=== PATIENT | male | born 1955 | race Caucasian/White ===

== ENCOUNTER 2016-09-02 07:45 | Day surgery (SDC) | payer OTHER ==
--- NOTE | 2016-02-21 17:12 | PCM.HPSURG ---
Subjective Date of Service: Feb 18, 2016 Referring Provider: Admitting Physician: Primary Care Physician: Nicci Vance MD Attending Physician: Senthil Valle MD Chief Complaint SEE BELOW History of Present Illness Patient: Tyson Garcia Date of : 1955 Visit Type: Pre Op Visit Date: 02/18/2016 09:00 AM This 60 year old male presents for Preop C3-5 ACDF and Allograft & Plating. History of Present Illness: 1. Preop C3-5 ACDF, Allograft & Plating Tyson Garcia is a 60 year old male referred by Primary Care Provider (PCP) Nicci Vance M.D. who presents today's date 02/18/2016 for a preoperative type of appointment concerning the decision for surgery involving C3-4, & C4-5 anterior cervical discectomy and fusion, with allograft bone 2, & anterior cervical plating from C3-5 secondary to a diagnosis of cervical spondylosis with myelopathy with related complaints of severe, intractable, and debilitating referred neck spasm with pain radiating to the bilateral shoulders & upper extremities involving numbness, paresthesias, dysesthesias, weakness, & loss of hand coordination. This patient was initially seen by Dr. Senthil Valle M.D. on 10/18/2015 documenting a 5 year history of cervical myelopathy, exacerbated by work activities. Over the past 5 years he has had constant neck pain, with gradual progression, episodes of pain between the shoulder blades, episodes of numbness and paresthesias in the forearms and hands, jitteriness in the hands, dropping things, and loss of hand coordination. A cervical MRI from 02-15-2015 shows cervical spondylosis and cord compression at C3-4 and C4-5. He also reports a history of carpal tunnel syndrome confirmed by NCVs, but reports these symptoms are relatively mild and tolerable at this time. Dr. Valle last saw the patient on 02/14/2016 recommending surgical decompression of the cervical spine with fusion and instrumented stabilization secondary to significant cervical spondylosis, cord compression at C3-4 & C4-[address] Valle and the patient reviewed all the risks and benefits associated with the procedure as well as reasonable expectations regarding surgical outcomes & the patient elected to proceed with surgery as planned. Dr. Valle also ordered a repeat cervical spine MRI without contrast including oblique views to be completed as soon as possible for surgical planning. The patient denies any complete or related acute loss of control of bowel or bladder function, saddle paresthesia or anesthesia. The patient has a pertinent positive past medical, surgical and social history for lumbar spinal surgery, hypothyroidism, history of acid reflux, history of abdominal pain, nocturia, chronic joint pain, frequent headaches, depression/ anxiety & STOPBANG =5. The patient's related complaints have been a serious detriment to their happiness and activities of daily living. Having failed conservative treatment the patient presents today for their decision for surgery appointment involving C3-4, & C4-5 anterior cervical discectomy and fusion, with allograft bone 2, & anterior cervical plating from C3-5 for treatment of cervical spondylosis with myelopathy; related to severe, intractable, and debilitating referred neck spasm with pain radiating to the bilateral shoulders & upper extremities involving numbness, paresthesias, dysesthesias, weakness, & loss of hand coordination. The procedure is scheduled to be performed by Dr. Senthil Valle M.D. on 02/26/2016. Problem List: Problem Description Spasm of lumbar paraspinous muscle Neck pain Medical/Surgical/Interim History Reviewed, no change. Last detailed document date:02/18/2016. Family History: Reviewed, no changes. Last detailed document date:02/18/2016. Social History (Reviewed, updated) 02/18/2016 Tobacco use reviewed. Preferred language is Belarusian. The patient does not need an training and development coordinator. Marital Status/Family/Social Support Currently unknown. Smoking status: Never smoker. Smoking Status Use Status Type Smoking Status Years Used Total Pack Years no/never Never smoker No passive smoke exposure. CAFFEINE The patient uses caffeine: soda - 3 cups a day. Allergies: Ingredient Reaction Medication Name Comment PENICILLINS nausea Reviewed, no changes. Review of Systems System Neg/Pos Details Positive Nocturia. MS Positive Back pain, Muscle weakness, Myalgia, Neck stiffness. Respiratory Negative Dyspnea, apnea and wheezing. Endocrine Negative Weight gain and weight loss. Integumentary Negative Mrsa and rash. Constitutional Negative Chills and fever. GI Negative Abdominal pain, constipation, diarrhea, nausea and vomiting. Eyes Negative Double vision and vision loss. MS Negative Bone/joint symptoms. Negative Dysuria, urge incontinence and urinary incontinence. Cardio Negative Chest pain, irregular heartbeat/palpitations, leg swelling and pacemaker. Psych Negative Anxiety and depression. Juan/Lymph Negative Blood clots. Neuro Negative Dizziness, headache and seizures. ENMT Negative Hearing loss. Vital Signs Height Time ft in cm Last Measured Height Position % 9:53 AM 6.0 0.00 182.88 10/18/2015 Weight/BSA/BMI Time lb oz kg Context % BMI kg/m2 BSA m2 9:53 AM 261.00 118.388 dressed with shoes 35.40 Blood Pressure Time BP mm/Hg Position Side Site Method Cuff Size 9:53 AM 110/75 sitting left arm manual adult Temperature/Pulse/Respiration Time Temp F Temp C Temp Site Pulse/min Pattern Resp/ min 9:53 AM 98.3 36.8 983 regular Pain Scale Time Pain Score Method 9:53 AM 2/10 Numeric Pain Intensity Scale Measured By Time Measured by 9:53 AM Jesus Chavez MA Screening Summary:o The following were reviewed: tobacco use, alcohol use and caffeine use Physical Exam Exam Findings Details Comments WD/WN, male who is AO x 3, cooperative,& appears to be in NAD w/ language & speech that is intact & fluent. There is no evidence of recent or remote memory impairment. The patient's knowledge is appropriate for age & level of education w/ a pleasant affect & euthymic mood. Ambulates w/ no difficulty. NC/AT, PERRL, EOMI, w/o facial droop, hearing grossly intact, nostrils patent, oral cavity and pharynx normal. Neck supple, w/o LAD or thyromegaly. Heart reveals RRR w/o audible murmurs Lungs CTAB Abdomen is NT/ND Decreased ROM of Cervical Spine Neg Spurlings, Neg Hoffmans, Neg Lhermittes Neg Tinnels, Neg Phalens, no tenderness over cubital tunnel Motor Strength: 5/5 throughout in UEs and LEs Diminishded Sensation diffusely both arms/hands, sparing right upper arm DTRs, are absent at the brachioradialis, 1+ biceps, triceps, absent at the knees , ankles Assessment/Plan # Detail Type Description 1. Assessment Cervical spondylosis with myelopathy (M47.12). 2. Assessment Preoperative examination (Z01.818). Patient Plan We including your Attending Surgeon have discussed the risks and benefits associated your scheduled procedure which you have verbally acknowledged understanding including but not limited to the possibility of an outcome that we are unable to predict or was not mentioned. 1. You are scheduled for a C3-4, & C4-5 anterior cervical discectomy and fusion , with allograft bone 2 & anterior cervical plating from C3-[address] Senthil Valle M.D. at [facility] on 02/26/2016. 2. Check in time is 9:30 AM. Also please ignore instructions below if told otherwise by your preadmission nurse or if you do not take the medications listed below. 3. Nothing to eat after midnight the night before surgery. You may take all of your "approved" medications with small sips of water. Remember to take your a.m. hypertension medication if it is a beta mekhi and ends in "olol. Otherwise ask your doctor if you need to hold your a.m. hypertension medication. 4. No aspirin, ibuprofen, Naprosyn, or other NSAIDs starting 7 days prior to surgery. 5. Please stop Warfarin/Coumadin or other blood thinners such as Plavix, Aggrenox, or Xarelto 7 days prior to your surgical procedure and follow specific instructions from your prescribing provider. 6. Please stop Lovenox bridging in the morning one day prior to procedure. 7. Please stop Suboxone/Buprenorphine at least 4 days prior to procedure. 8. Go to the hospital today to get her preoperative testing done. Take the order form to the surgery desk on the second floor of the hospital, [facility] (main entrance next to the emergency entrance). I will notify you if there is any test results that require further workup prior to surgery. 9. Follow the instructions you were given today, use the cleansing cloths the night before as well as the morning of her surgery. 10. If you are prescribed inhalers, CPAP or BiPAP machines you use at home bring along with you to the hospital. 11. ONLY If you take medications for Diabetes: If you have an insulin pump continue lowest (typically night-time) basal rate into the a.m. If you do not have a pump check h your a.m. blood sugar and hold insulin if BS less than 100. If you are taking long-acting, intermediate acting (NPH) or 70/30 preparation : Take half on day of procedure. If you are taking ultra long-acting insulin such as glargine, Lantus either at night or in the a.m. continue as scheduled ( including day of surgery). If you take short acting regular insulin (insulin not delivered via pump) discontinue on day of procedure. 12. Please call if you have any questions before your surgery: [phone]. Today's instructions/counseling include(s) Pre-operative instructions given to the patient and or legal healthcare representative(s) orally and in writing. 13. Our office will contact you if there are any test results that require further workup prior to surgery. Provider Plan The patient's history and examination as well as radiological findings were reviewed with Dr. Senthil Valle M.D. and conveyed the patient in detail. The findings are consistent with cervical spondylosis with myelopathy and are most likely the cause of the patient's severe, intractable, and debilitating referred neck spasm with pain radiating to the bilateral shoulders & upper extremities involving numbness, paresthesias, dysesthesias, weakness, & loss of hand coordination. The patient has failed extensive conservative treatment for this condition. The treatment options were discussed with the patient. The options include attempt to live with the condition, reattempt conservative treatment, try a pain management intervention / injection or consider a surgical intervention. We are not extremely optimistic that further conservative treatment, pain management intervention and/or injection will adequately resolve the patient's symptoms of severe, intractable, and debilitating referred neck spasm with pain radiating to the bilateral shoulders & upper extremities involving numbness, paresthesias, dysesthesias, weakness, & loss of hand coordination. Therefore we recommend C3-4, & C4-5 anterior cervical discectomy and fusion, with allograft bone 2, & anterior cervical plating from C3-5. The patient was provided/offered educational materials pertaining to their diagnosis and the above discussed procedure. We discussed the risks and benefits associated with this surgery. A spine model was used to explain the nature of this type of surgery. The risk of the required anesthesia was also mentioned including but not limited to organ failure such as heart attack, pneumonia and stroke even . The risk of this type of surgery was also mentioned. Including but not limited to an unsuccessful outcome, residual symptoms, odynophagia, dysphasia or sore throat, referred or radiating posterior spinal myofascial inflammatory pain or spasm, post operative instability, instrumentation failure, sensory changes, blood loss, blood clots, wound infection, spinal cord or nerve damage, CSF or lymph leak, damage to neighboring structures such as the recurrent laryngeal nerve, perforation of the esophagus or trachea, pseudoarthrosis, adjacent level disease , Leeanna's Syndrome, vision loss, voice change, resulting in temporary or permanent dysfunction, even disability, paralysis, and . The recovery of this type of surgery was also mentioned. The chances of improvement of neck pain is 50%. This includes but is not limited to reasonable expectations for the treatment of myelopathy involving the surgical decompression of the cervical spinal cord; which will stop the progression of the patient's condition but cannot guarantee improvements in any associated physical complaints. The patient verbalized understanding all the risks and benefits, knowing that it is impossible to predict or guarantee every surgical outcome; and would like to proceed with the above discussed procedure anyways. Surgery is scheduled for 02/26/2016 The standard [facility] preoperative screening tests, medicine restrictions, and logistical protocols apply. Any preoperative testing is within normal limits to undergo the above discussed procedure unless otherwise noted in the medical record. Medications (added, continued or stopped this visit): Start Date Medication Directions Stop Date gabapentin 100 mg capsule take 1 Capsule by oral route 3 times every day niacin take 1 tablet by oral route every day with meals 02/25/2016 Percocet 5 mg-325 mg tablet take 1 - 2 tablet by oral route every 4 - 6 hours as needed for pain 02/25/2016 Valium 5 mg tablet take 1 Tablet by oral route every 8 hours Counseling/Educational Factors: Counseling / educational factors reviewed. Counseling / educational factors reviewed. This is a visit of 60 minutes. 50 minutes were spent counseling. The patient was checked out at 11:19 AM. This document may have been created using voice recognition software or other electronic means and may contain inadvertent nursing unit coordinator errors. Provider: Michael LEIVA 02/21/2016 05:11 PM Document generated by: Michael Mcmullen 02/21/2016 05:11 PM CC Providers: Nicci Vance [address] [place] [address]- Lashaun Milton [address] [place] [address]- Nicci Vance [address] [place] [address] [address] [place] [address] gregory quigley l i n i c s . o r g Allergy Allergies: Coded Allergies: Penicillins (Verified Adverse Reaction, Severe, NAUSEA, 02/21/16) PMH HEENT History History of ENT Problems?: No Cardiovascular History History of Heart Problems?: No Cardiovascular History: Positive for:: Chest Pain (11/2005 DEEMED TO BE R/T GERD) Denies:: Heart Murmur Hypertension Respiratory History of Respiratory Problem: No Respiratory History: Denies:: Use of C-PAP Machine Neurological History Hx Neurologic Problems?: Yes Neurological History: Positive for:: Headaches (FREQUENT) Gastrointestinal History HX of GI Problems?: Yes Gastrointestinal History: Positive for:: Gastroesphageal Reflux Other GI Pertinent History: HX OF ABD PAIN Genitourinary History Hx of Gu Problems?: Yes Other Pertinent History?: C/OF FREQUENCY & NOCTURIA Female/Male History Reproductive History Male: Denies: Prostate Problems Scrotal Mass Skin History Skin History: Denies:: History Skin Disorders? Pressure Ulcers Musculoskeletal History Hx Musculoskeletal Problems?: Yes Musculoskeletal History: Positive for:: Musculoskeletal Trauma (C/OF CHRONIC JOINT PAIN) Denies:: Back Injury (S/P LUMBAR SPINE SURGERY) Psycho Social History Hx of Psycho/Social Problems?: Yes Psycho Social History: Positive for:: Anxiety Hx Depression Other History Hx Any Other Health Problems?: Yes Other History: Denies:: Cancer Hospitalization Thyroid Disease (HX OF HYPOTHYROID-NO CURRENT PROBLEMS) Diabetes: No Michael Mcmullen PA-C Feb 21, 2016 17:12
--- NOTE | 2016-08-29 09:08 | PCM.HPSURG ---
Subjective Date of Service: Aug 22, 2016 Referring Provider: Admitting Physician: Primary Care Physician: Nicci Vance MD Attending Physician: Senthil Valle MD Chief Complaint SEE BELOW History of Present Illness Tyson Garcia [id number] 1955 08/22/2016 01:00 PM Page: 05/30 blank > Patient: Tyson Garcia Date of : 1955 Visit Type: Pre Op Visit Date: 08/22/2016 01:00 PM This 60 year old male presents for Preop Right Carpal Tunnel Release. History of Present Illness: 1. Preop Right Carpal Tunnel Release Tyson Garcia is a 60 year old male referred by her primary Care Provider (PCP) Imelda Benavides who presents today's date 08/22/2016 for a preoperative type of appointment concerning the decision for surgery involving right carpal tunnel release secondary to a diagnosis of right carpal tunnel syndrome with related complaints of severe, intractable, and debilitating right hand pain with numbness, & paresthesias. The patient was last seen by Dr. eSnthil Valle M.D. on 06/11/2016 documenting a 5 year history of cervical myelopathy, exacerbated by work activities. Over the past 5 years he has had constant neck pain, with gradual progression, episodes of pain between the shoulder blades, episodes of numbness and paresthesias in the forearms and hands, jitteriness in the hands, dropping things, and loss of hand coordination. A cervical MRI from 02-15-2015 shows cervical spondylosis and cord compression at C3-4 and C4-5. He also reports a history of carpal tunnel syndrome confirmed by [facility], on a strudy from 2014. A repeat MRI scan of the cervical spine was obtained 02/22/2016 showing mild flattening of the anterior cord at C3-4 pronounced cord flattening at C4- 5. The original plan was to schedule this patient for C3-5 ACDF, but he developed shingles involving the right side of his neck just prior to his preop and surgery was canceled. The shingles have resolved and he is here for follow- up. Since he was last seen, the patient reports that he is primarily having symptoms from constant pain and numbness in his hands he can extend to his forearms. He cannot provoke the symptoms with cervical flexion or extension, and cannot provoke the symptoms with flexion or extension of his wrists. Repeat NCVs were obtained 05-28-16 confirming severe bilateral carpal tunnel syndrome, right greater then left, and deterioration since prior NCV. He is primarily symptomatic from the entrapment of the median nerves at the wrist bilaterally, which is more severe on the right side. According to Dr. Valle the patient is an appropriate surgical candidate for right carpal tunnel release having failed conservative treatment. Dr. Valle & the patient reviewed all the risks and benefits associated with the proposed procedure as well as reasonable expectations with regards to surgical outcomes & the patient elects to proceed with surgery as planned. The patient denies any related complete or acute loss of control of bowel or bladder function, saddle paresthesia or anesthesia. The patient has a reported pertinent past medical, surgical, family, & social history for [ATLEAST 2] with no other then the above known positive history &/ or review of all other organ systems. The patient's related complaints have been a serious detriment to their happiness and activities of daily living. Having failed conservative treatment the patient presents today for their decision for surgery appointment involving right carpal tunnel release for treatment of right carpal tunnel syndrome; related to severe, intractable, and debilitating right hand pain with numbness, & paresthesias. The procedure is scheduled to be performed by Dr. Senthil Valle M.D. on 09/02/2016. ANESTHESIA NOTE: We have requested anesthesia consultation for MAC anesthesia. Problem List: Problem Description Spasm of lumbar paraspinous muscle Neck pain Medical/Surgical/Interim History Reviewed, no change. Last detailed document date:08/22/2016. Family History: Reviewed, no changes. Last detailed document date:08/22/2016. Social History (Reviewed, updated) 08/22/2016 Tobacco use reviewed. Preferred language is Greenlandic. The patient does not need an mold inspector. Marital Status/Family/Social Support Currently unknown. Smoking status: Never smoker. Smoking Status Use Status Type Smoking Status Years Used Total Pack Years no/never Never smoker No passive smoke exposure. CAFFEINE The patient uses caffeine: soda - 3 cups a day. Allergies: Ingredient Reaction Medication Name Comment PENICILLINS nausea Reviewed, no changes. Review of Systems System Neg/Pos Details Cardio Positive Leg swelling. Positive Nocturia. Psych Positive Depression. MS Positive Back pain, Bone/joint symptoms, Muscle weakness, Myalgia, Neck stiffness. Negative Dysuria, urge incontinence and urinary incontinence. Endocrine Negative Weight gain and weight loss. Eyes Negative Double vision and vision loss. Integumentary Negative Mrsa and rash. Juan/Lymph Negative Blood clots. Respiratory Negative Dyspnea, apnea and wheezing. GI Negative Abdominal pain, constipation, diarrhea, nausea and vomiting. ENMT Negative Hearing loss. Neuro Negative Dizziness, headache and seizures. Constitutional Negative Chills and fever. Cardio Negative Chest pain, irregular heartbeat/palpitations and pacemaker. Psych Negative Anxiety. Vital Signs Height Time ft in cm Last Measured Height Position % 12:59 PM 6.0 0.00 182.88 05/22/2016 Weight/BSA/BMI Time lb oz kg Context % BMI kg/m2 BSA m2 12:59 PM 263.80 119.658 dressed with shoes 35.78 Blood Pressure Time BP mm/Hg Position Side Site Method Cuff Size 12:59 PM 123/76 sitting left wrist automatic adult Temperature/Pulse/Respiration Time Temp F Temp C Temp Site Pulse/min Pattern Resp/ min 12:59 PM 98.8 37.1 94 regular Pain Scale Time Pain Score Method 12:59 PM 6/10 Numeric Pain Intensity Scale Measured By Time Measured by 12:59 PM Jesus Chavez MA Screening Summary:o Pain is described as 6/10. Evaluated pain score with Numeric Pain Intensity Scale. The following were reviewed: tobacco use, alcohol use and caffeine use Physical Exam Exam Findings Details Comments WD/WN, obese male who is AO x 3, cooperative & appears to be in NAD w / language & speech that is intact & fluent. There is no evidence of recent or remote memory impairment. The patient's knowledge is appropriate for age & level of education w/ a pleasant affect & euthymic mood. Ambulates w/ no difficulty. NC/AT, PERRL, EOMI, w/o facial droop, hearing grossly intact, nostrils patent, oral cavity and pharynx normal. Neck supple, w/o LAD or thyromegaly. Heart reveals RRR w/o audible murmurs Lungs CTAB Abdomen is NT/ND Decrease ROM of cervical spine Negative Spurling's, Heavenly's, & Lhermitte's Positive right Tinel's & Phalen's with no tenderness over bilateral cubital tunnels. Diminished sensation diffusely &'s right > left median nerve distribution. DTRs are absent at the brachial radialis, 1+ remaining DTRs. Assessment/Plan # Detail Type Description 1. Assessment Right carpal tunnel syndrome (G56.01). 2. Assessment Preoperative examination (Z01.818). Patient Plan We including your Attending Surgeon have discussed the risks and benefits associated your scheduled procedure which you have verbally acknowledged understanding including but not limited to the possibility of an outcome that we are unable to predict or was not mentioned. 1. You are scheduled for a right carpal tunnel release with Dr. Senthil Valle M.D. at [facility] on 09/02/2016. 2. Check in time is 10 AM. Also please ignore instructions below if told otherwise by your preadmission nurse or if you do not take the medications listed below. 3. Nothing to eat after midnight the night before surgery. You may take all of your "approved" medications with small sips of water. Remember to take your a.m. hypertension medication if it is a beta mekhi and ends in "olol. Otherwise ask your doctor if you need to hold your a.m. hypertension medication. 4. No aspirin, ibuprofen, Naprosyn, or other NSAIDs starting 7 days prior to surgery. 5. Please stop Warfarin/Coumadin or other blood thinners such as Plavix, Aggrenox, or Xarelto 7 days prior to your surgical procedure and follow specific instructions from your prescribing provider. 6. Please stop Lovenox bridging in the morning one day prior to procedure. 7. Please stop Suboxone/Buprenorphine at least 4 days prior to procedure. 8. Go to the hospital today to get her preoperative testing done. Take the order form to the surgery desk on the second floor of the hospital, [facility] (main entrance next to the emergency entrance). I will notify you if there is any test results that require further workup prior to surgery. 9. Follow the instructions you were given today, use the cleansing cloths the night before as well as the morning of her surgery. 10. If you are prescribed inhalers, CPAP or BiPAP machines you use at home bring along with you to the hospital. 11. ONLY If you take medications for Diabetes: If you have an insulin pump continue lowest (typically night-time) basal rate into the a.m. If you do not have a pump check h your a.m. blood sugar and hold insulin if BS less than 100. If you are taking long-acting, intermediate acting (NPH) or 70/30 preparation : Take half on day of procedure. If you are taking ultra long-acting insulin such as glargine, Lantus either at night or in the a.m. continue as scheduled ( including day of surgery). If you take short acting regular insulin (insulin not delivered via pump) discontinue on day of procedure. 12. Please call if you have any questions before your surgery: [phone]. Today's instructions/counseling include(s) Pre-operative instructions given to the patient and or legal access services representative(s) orally and in writing. 13. Our office will contact you if there are any test results that require further workup prior to surgery. Provider Plan The patient's history and examination as well as radiological findings were reviewed with Dr. Senthil Valle M.D. and conveyed the patient in detail. The findings are consistent with right carpal tunnel syndrome and are most likely the cause of the patient's severe, intractable, and debilitating right hand pain, numbness, & paresthesias. The patient has failed extensive conservative treatment for this condition. The treatment options were discussed with the patient. The options include attempt to live with the condition, reattempt conservative treatment, try a pain management intervention / injection or consider a surgical intervention. We are not extremely optimistic that further conservative treatment, pain management intervention and/or injection will adequately resolve the patient's symptoms of severe, intractable, and debilitating right hand pain, numbness, & paresthesias. Therefore we recommend right carpal tunnel release. The patient was provided/offered educational materials pertaining to their diagnosis and the above discussed procedure. We discussed the risks and benefits associated with this surgery. A spine model was used to explain the nature of this type of surgery. The risk of the required anesthesia was also mentioned including but not limited to organ failure such as heart attack, pneumonia and stroke even . The risk of this type of surgery was also mentioned. Including but not limited to an unsuccessful outcome, residual symptoms, sensory changes, blood loss, blood clots, wound infection, nerve damage, damage to neighboring structures resulting resulting in temporary or permanent dysfunction, even disability, paralysis, and . The recovery of this type of surgery was also mentioned for at least 6 weeks. However if there has been a long-standing compression of the nerve with altered nerve function full recovery may not be fully guaranteed. In these instances return to function is slightly determined by the degree of compression and for how long the nerve was compressed. The patient verbalized understanding all the risks and benefits, knowing that it is impossible to predict or guarantee every surgical outcome; and would like to proceed with the above discussed procedure anyways. Surgery is scheduled for 09/02/2016. The standard [facility] preoperative screening tests, medicine restrictions, and logistical protocols apply. Any preoperative testing is within normal limits to undergo the above discussed procedure unless otherwise noted in the medical record. ANESTHESIA NOTE: We have requested anesthesia consultation for MAC anesthesia. Medications (added, continued or stopped this visit): Start Date Medication Directions Stop Date 09/01/2016 Percocet 5 mg-325 mg tablet take 1 - 2 tablet by oral route every 4 - 6 hours as needed for pain Counseling/Educational Factors: Counseling / educational factors reviewed. Counseling / educational factors reviewed. This is a visit of 60 minutes. 50 minutes were spent counseling. This document may have been created using voice recognition software or other electronic means and may contain inadvertent chiller tender errors. Provider: Michael LEIVA 08/22/2016 02:02 PM Document generated by: Michael Mcmullen 08/22/2016 02:02 PM CC Providers: Nicci Vance [address] [facility] [id number] [place] [address] gregory guaman i n i dann s Xin o r g Allergy Allergies: Coded Allergies: Penicillins (Verified Adverse Reaction, Severe, NAUSEA, 08/27/16) Social History Hx Alcohol Use: No PMH HEENT History History of ENT Problems?: No Cardiovascular History History of Heart Problems?: Yes Cardiovascular History: Positive for:: Chest Pain (11/2005 DEEMED TO BE R/T GERD) Edema (LE EDEMA) Denies:: Heart Murmur Hypertension Respiratory History of Respiratory Problem: No Respiratory History: Denies:: Use of C-PAP Machine Neurological History Hx Neurologic Problems?: Yes Neurological History: Positive for:: Headaches (FREQUENT) Other Neurological History: RECENT OUTBREAK OF SHINGLES (RESOLVED) Gastrointestinal History HX of GI Problems?: Yes Gastrointestinal History: Positive for:: Gastroesphageal Reflux Heartburn Other GI Pertinent History: HX OF ABD PAIN Genitourinary History Hx of Gu Problems?: Yes Other Pertinent History?: C/OF FREQUENCY & NOCTURIA Female/Male History Reproductive History Male: Denies: Prostate Problems Scrotal Mass Skin History Skin History: Denies:: History Skin Disorders? Pressure Ulcers Musculoskeletal History Hx Musculoskeletal Problems?: Yes Musculoskeletal History: Positive for:: Musculoskeletal Trauma (C/OF CHRONIC JOINT PAIN; LT KNEE PAIN AFTER FALL ON STAIRS) Denies:: Back Injury (C/OF BACK & NECK PAIN/STIFFNESS) Psycho Social History Hx of Psycho/Social Problems?: Yes Psycho Social History: Positive for:: Anxiety Hx Depression Other History Hx Any Other Health Problems?: No Other History: Denies:: Cancer Hospitalization Thyroid Disease (HX OF HYPOTHYROID-NO CURRENT PROBLEMS) Diabetes: No Social History Hx Alcohol Use: No Smoking Status: Never Smoker Michael Mcmullen PA-C Aug 29, 2016 09:08
[~2016-09-02] VITALS: Ht 182.9 cm; Wt 121.0 kg
[~2016-09-02 07:45] MED LIST: Bacitracin 50,000 unit Inj IRRIGATION ONE; Bacitracin 50,000 unit Inj IRRIGATION SCH; Clindamycin 900 mg/50 mL D5W Premix IV ONE; Clindamycin 900 mg/50 mL D5W Premix IV SCH; Lactated Ringer's 1,000 ML IV SCH; OXYC1TAB24 PO; Thrombin Powder 5,000 Unit TOPICAL ONE
[2016-09-02] MEDS ORDERED: Propofol 10,000 mCg/mL 20 mL Inj ONE (07:46)
[2016-09-02] MEDS ORDERED: fentaNYL-PF 50 mCg/mL 2 mL Inj ONE (07:46)
--- NOTE | 2016-09-02 08:17 | PCM.HPANE ---
Patient Data Surgeon Admitting Provider: Attending Provider:Senthil Valle MD Primary Care Physician:Nicci Vance MD Other Provider:AssLucrecia gavinRawlins Anesthesia Reason for Visit Bilateral Carpal Tunnel Syndrome Ht/WT & BMI Height (Feet): 6 Height (Inches): 0.00 Weight (Kilograms): 119.658 Body Mass Index 35.00 Allergies Coded Allergies: Penicillins (Verified Adverse Reaction, Severe, NAUSEA, 08/27/16) Past Anesthesia History Anesthesia History: Denies:: Anesthesia Reactions, Fam Anesthesia Reaction, Fam Malignant Hypertherm, Malignant Hyperthermia Diabetes History Hx Diabetes?: No MRSA MRSA: No Medications Hypertension Medication: No Home Meds Incl Beta Pamela: No Reported Medications oxyCODONE-Acetaminophen 5-325 mg 1 Each Tablet1-2 Tab PO Q4-6H PRN For Pain Ref 0 08/27/16 Discontinued Reported Medications Niacinamide (Niacin)500 Mg [id number] Mg PO DAILY PLEASE VERIFY DOSAGE 02/21/16 History History of ENT Problems?: No Hx of Heart Problems?: Yes Cardiovascular History: Positive for:: Chest Pain (11/2005 DEEMED TO BE R/T GERD) Edema (LE EDEMA) Denies:: Heart Murmur Hypertension Hx of Respiratory Problem?: No Respiratory History: Denies:: Use of C-PAP Machine Hx Neurologic Problems?: Yes Neurological History: Positive for:: Headaches (FREQUENT) Other Neurological Pertinent: RECENT OUTBREAK OF SHINGLES (RESOLVED) Hx of GI Problems?: Yes Gastrointestinal History: Positive for:: Gastroesphageal Reflux Heartburn Other GI Pertinent History: HX OF ABD PAIN Hx of Problems?: Yes Other Pertinent History: C/OF FREQUENCY & NOCTURIA Male Hx: Denies:: Prostate Problems Scrotal Mass Testicular Surgery Skin History: Denies:: History Skin Disorders? Pressure Ulcers Hx Musculoskeletal Problems?: Yes Musculoskeletal History: Positive for:: Musculoskeletal Trauma (C/OF CHRONIC JOINT PAIN; LT KNEE PAIN AFTER FALL ON STAIRS) Denies:: Back Injury (C/OF BACK & NECK PAIN/STIFFNESS) Hx of Psycho/Social Problems?: Yes Psycho Social History: Positive for:: Anxiety Hx Depression Hx Surgeries?: No Hx Any Other Health Problems?: No Other History: Denies:: Cancer Hospitalization Thyroid Disease (HX OF HYPOTHYROID-NO CURRENT PROBLEMS) History Blood Transfusions: Denies:: Blood Transfusions Hx Diabetes: No Hx Alcohol Use: No Smoking Status: Never Smoker Have You Smoked inLast 12 mo: No Stop/Bang S-Snoring: Do You Snore Loudly: No T-Tired: feel tired, fatigued: Yes O-Obsered: Observed not breath: Yes P-Blood Pressure: treated: No B- Body Mass Index > 35 kg/m2: Yes A- Age over 50: Yes N- Neck Large Circumference: No G- Gender Male: Yes SOLEDAD Total Score: 5 SOLEDAD Risk Assessment: High Risk, =/>3 Yes SOLEDAD Category 4 OutPt Procedure: Yes Risk Assessment Category Category 1A: Patient has history of documented sleep apnea, and HAS NOT received any narcotic, sedative or anesthesia administration during this stay. Category 1B: Patient has history of documented sleep apnea, and HAS received any narcotic , sedative or anesthesia administration during this stay Category 2: Patient has SUSPECTED Obstructive Sleep Apnea, and HAS received any narcotic , sedative or anesthesia administration during this stay. Category 3: Patient has SUSPECTED Obstructive Sleep Apnea and HAS NOT received narcotic, sedative or anesthesia administration during this stay. Category 4: Outpatient in Procedural Areas with known sleep apnea or who screen positive for High Risk via the STOP/BANG questionnaire. Exam Exam General Appearance: Alert, Oriented X3, Cooperative, No Acute Distress HEENT/AIRWAY: MP 2 Lungs: Normal Air Movement Heart: Exam Unremarkable Plan Impression Patient chart reviewed, patient interviewed and anesthestic plan with risks, benefits, and alternatives discussed, and informed consent obtained. ASA Physical Status: ASA2 Mod Systemic Disease Anesthetic Plan: MAC Bene/Risks/Altern/Consents: Yes HP Complete Prior to Induction: Yes Michael Fine MD Sep 02, 2016 08:17
[2016-09-02 08:51] VITALS: BP 119/71; PULSE 74; RESP 16; O2SAT 95
[2016-09-02] MEDS ORDERED: Lactated Ringer's 1,000 ML IV ONE (11:14)
[2016-09-02] MEDS ORDERED: Bupivacaine-MPF 0.5% 30 mL Inj INJ ONE (11:31)
[2016-09-02] MEDS ORDERED: Lactated Ringer's 1,000 ML IV SCH (11:33)
[2016-09-02] MEDS ORDERED: Lactated Ringer's 500 ML IV PRN (11:33)
[2016-09-02] MEDS ORDERED: Phenylephrine 10,000 mCg/mL Inj IVPUSH PRN (11:35)
[2016-09-02] MEDS ORDERED: Dexamethasone 4 mg/mL Inj IVPUSH PRN (11:35)
[2016-09-02] MEDS ORDERED: MetoCLOpramide 5 mg/mL 2 mL Inj IVPUSH PRN (11:35)
[2016-09-02] MEDS ORDERED: fentaNYL-PF 50 mCg/mL 2 mL Inj IVPUSH PRN (11:35)
[2016-09-02] MEDS ORDERED: Albuterol-Ipratropium 3 mL Inhalation Solution NEB PRN (11:35)
[2016-09-02] MEDS ORDERED: HYDROmorphone 1 mg/mL Inj IVPUSH PRN (11:35)
[2016-09-02] MEDS ORDERED: EPHEDrine Sulfate 50 mg/mL Inj IVPUSH PRN (11:35)
[2016-09-02] MEDS ORDERED: Ondansetron 2 mg/mL 2 mL Inj IVPUSH PRN (11:35)
[2016-09-02] MEDS ORDERED: oxyCODONE-Acetamin 5-325 mg Tablet PO PRN (11:55)
[2016-09-02] MEDS ORDERED: HYDROmorphone 0.5 mg/0.5 mL iSecure Syringe IVPUSH ONE (12:00)
[2016-09-02 12:03] VITALS: BP 112/79; PULSE 74; RESP 16; O2SAT 97
--- NOTE | 2016-09-02 12:03 | PCM.DISURG ---
Surgical Discharge Instruction Date of Service Sep 02, 2016 Dates of Hospitalization Date of Hospital Admission Outpatient day surgery 09/02/2016 Providers Admitting Physician: Primary Care Physician: Nicci Vance MD Attending Physician: Senthil Valle MD Discharge Diagnosis Discharge Diagnosis Status post right carpal tunnel release Post Operative diagnosis Status post right carpal tunnel release Additional Instructions Discharge Instructions POST OPERATIVE INSTRUCTIONS FOR CARPAL TUNNEL SURGERY Carpal tunnel syndrome is a disorder of the hand which can result in characteristic symptoms of pain and tingling (usually the thumb, index and middle fingers), loss of feeling in the hand, clumsiness and difficulty with manual activities. Description of Carpal Tunnel Syndrome The carpal tunnel is a narrow tunnel formed by the bones and ligaments of the wrist through which the nerves and tendons pass from the forearm to the hand. If the tendon linings become inflamed and swell, this can compress the main nerve of the hand (the median nerve) causing symptoms. This condition affects many people including laborers, typists, women and retired people alike. In most cases there is no obvious cause for the problem. Treatment Initial treatment can consist of splinting, and therapy. Definitive treatment is with surgical release of the carpal tunnel performed as a out-patient day procedure. Our preference is to perform this surgery under local anesthetic after the Anesthesiologist has given you some intravenous sedation. Dressings Your hand will be bandaged following your surgery. If you wish to take a shower , tape a plastic bag over your bandage and hold well above your head to prevent water dripping inside your dressing. These dressings can be changed by a Hand Therapist, a nurse or your doctor 7 and 14 days following surgery or as needed if they become soiled or saturated. You will only need dressing changes for the first two weeks or so until primary healing has occurred. Stitches Stitches will be removed by your nurse or provider 2 weeks after surgery. Smoking: Cigarette smoking (even just one or two!) can affect your healing and rate of complications. We therefore strongly recommend that you do not smoke for one month after your surgery. Medication: Take your usual and post operative medication as instructed. Aspirin: If you are taking aspirin under your doctor's orders (e.g. you have previously had a blood clot, stroke, heart attack, etc) it is preferable that you continue taking your aspirin. Otherwise you should avoid medicines containing aspirin for four days after surgery. Vitamin E: You should avoid medicines containing vitamin E for four weeks after surgery. Alcohol: Do not drink any alcohol (beer, wine, spirits) for one week after surgery. Food and Fluids: You may be constipated so have light meals with plenty of fluids (preferably 6- 8 glasses of water per day). Eat ample fresh fruit and vegetables. To reduce fluid retention, avoid salty foods. Activity We generally encourage gentle movements of the fingers within the dressing for the first few days. Keep your hand elevated above the heart for the first 48-72 hours to control swelling. Early movement is crucial to a good recovery and we will specify to you if you are to limit this mobilization in any way. You should be able to use your hand for eating, dressing and attending to hygiene needs straight after your operation. Please sleep with your hand elevated on a pillow beside you for the first week (at least) following surgery. Driving It is generally considered unsafe to drive with dressings in place. Your ability to drive safely will be determined by numerous factors relating your car and also your surgery. As a general rule, expect at least a week off driving or as long as you continue to take narcotic pain medications. Pain Pain is not usually a feature following this surgery. If you do have pain you should take your postoperative pain medications as directed. Recovery Generally speaking, carpal tunnel release is very successful surgery with a reliable outcome if pain is your only symptom. If there has been a long standing compression of the nerve with altered nerve function (numbness or weakness) your recovery may not be fully guaranteed. In these instances return of function is largely determined by the degree of compression and for how long the nerve was compressed. Work Your return to work will be largely determined by what you do with your hands at your place of work and whether the operation was to your dominant hand. A return to clerical duties can occur within days of surgery whereas it can be several weeks before returning to a manual job. Full strength and dexterity will not return until 3-6 months after surgery. Your Initial Follow-Up Schedule: Wound Checks in 1 & 2 weeks You should call your Doctor or go to the Emergency Department if you develop chest pain, shortness of breath, a temperature greater than 101.5 F , Increased pain/swelling/bruising, Change of color of any of your digits, Bleeding/ discharge/offensive odor or Any sudden loss of movement in your hand. Instructions Regarding Comfort & Pain Medication Use: During the recovery period , even with the use of pain medication, you may experience pain at the site of surgery. You may also have the same type of pain you had before surgery. Please use your pain scale as a guide for taking your pain medication. When your pain is greater than 4 out of 10, or when your pain reaches your personal tolerable level of pain, take your pain medication as prescribed. Use your pain medication on an 'as needed' basis. This means if your pain level is within your tolerable level of pain you DO NOT need to take the medication. As you get better, you will notice you can increase the time interval between doses and decrease the number of tablets you are taking, gradually taking less and less pain medication. Taking pain medication when it is not necessary (for example when your pain is tolerable or acceptable) can result in dangerous side effects and over- sedation. Signs and symptoms of over-sedation include: drowsiness, excessive sleeping, slow or difficult breathing, slurred speech, impaired thinking, confusion, impaired motor coordination. If you have any of these symptoms stop taking the medication and immediately contact your doctor. IF SYMPTOMS ARE LIFE THREATENING CALL 911. To decrease pain and swelling, frequently apply an ice pack for 20 min intervals with at least one hour off. When to take Acetaminophen for pain? If you don't have liver problems, allergies and/or Tylenol is not in your current pain medication. Take Extra Strength Tylenol 500mg 2 tabs by mouth every 6 hours as needed for pain. DO NOT EXCEED 8 TABS PER DAY. Follow Up Plan Follow Up Plan Follow-up with physician asset protection assistant in outpatient neurosurgical clinic in 1 week for wound check. Follow-up Provider (F9): Michael Mcmullen PA-C Additional Information Attending Statement All documentation reviewed & orders authorized by Dr. Senthil Valle M.D. Michael Mcmullen PA-C Sep 02, 2016 12:03
--- NOTE | 2016-09-02 12:28 | PCM.ANEP1 ---
Post Anesthesia Phase 1 PACU Phase 1 Assessment Date of Service: Aug 22, 2016 Vital Signs Vital Signs Date Time Temp Pulse Resp B/P Pulse Ox O2 Delivery O2 Flow Rate FiO2 09/02/16 12:03 74 16 112/79 97 Room Air 09/02/16 08:51 36.2 74 16 119/71 95 Room Air Anesthetic Administered: MAC Level of Alertness: Awake, talking MUNSON's with Equal Strength: Yes Pain: No Nausea or Vomiting: No Oxygen Delivery: Room Air Lungs: Normal Air Movement Dermatome Level: Full Sensation Michael Fine MD Sep 02, 2016 12:28
--- NOTE | 2016-09-02 12:28 | PCM.ANEP2 ---
Post Anesthesia Evaluation ASA/CMS Post Anesthesia VS in Patient's Normal Range?: Yes Resp Stable; Airway Patent?: Yes CV Function & Hydration Stable: Yes Mental Status Recovered?: Yes Pain control Satisfactory?: Yes N/V Control Satisfactory?: Yes Michael Fine MD Sep 02, 2016 12:28
[2016-09-02 12:54] VITALS: BP 110/78; PULSE 71; RESP 17; O2SAT 96
--- NOTE | 2016-09-02 21:13 | OP ---
[address] [address] OPERATIVE REPORT PATIENT: BRITTNY COE : 1955 MR#: [id number] ADMIT: 09/02/2016 JOB ID: [id number] DATE OF SURGERY: 09/02/2016 SURGEON: Senthil Valle MD. COURTESY BUS DRIVER: No assistant research scientist. ANESTHESIA: MAC anesthesia with Dr. Fine, and local infiltration, PREOPERATIVE DIAGNOSIS(ES): Right carpal tunnel syndrome. POSTOPERATIVE DIAGNOSIS(ES): PROCEDURE: Right carpal tunnel release. COMPLICATIONS: None. DRAINS: None. INDICATIONS: This patient presented with carpal tunnel syndrome, confirmed by NCVs, with diffuse paresthesias in his hands and forearm. PROCEDURE: This patient was given sedation by the anesthesiologist, MAC anesthesia and had local infiltration of the right hand with a combination of lidocaine and Marcaine. An incision was placed in the palm of the right hand just medial to the thenar eminence, extending from mid palm to the level of the wrist. The incision was carried down sharply through the skin and subcutaneous tissues. Hemostasis was achieved with the bipolar electrocautery. The transverse carpal ligament was incised exposing the median nerve. The Metzenbaum scissors were used to resect the transverse carpal ligament in the palm of the hand, extending this incision through the wrist and forearm to completely decompress the median nerve from the forearm to the mid palm. Following the decompression, hemostasis was achieved with the bipolar electrocautery and the wound was irrigated with antibiotic solution. The wound was then closed with interrupted sutures of 4-0 nylon. Antibiotic ointment was applied to the wound which was dressed with Telfa, Fluff gauze, and wrapped lightly in Kerlix, and an Dejuan bandage. The procedure was tolerated well without complications.
== END 2016-09-02 23:59 | disposition home or self-care (01) ==
LOC: SAS 07:45
PROVIDERS: ATTEND Neurological Surgery
DX: G56.01 Carpal tunnel syndrome, right upper limb (principal); G95.89 Other specified diseases of spinal cord; K21.9 Gastro-esophageal reflux disease without esophagitis; F41.9 Anxiety disorder, unspecified; F32.9 Major depressive disorder, single episode, unspecified